=== PATIENT | female | born 2005 | race Two or more races ===

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

== ENCOUNTER 2024-04-01 15:33 | Outpatient (REF) | payer MEDICAID, SELFPAY ==
--- OUTSIDE RECORDS SUMMARY | 2024-04-01 15:35 | XMS_ITS | Encounter Summary ---
Author Organization [employer] Address [address] [facility] 7 [place] [address] Care Team Providers Care Costing Analyst Name Role Phone Desiree Sanchez Primary Care Provider [phone] Reason for Visit * Reason Onset Date Comments No Show 03/30/2024 Encounter Details Date Type Department Care Team ([facility] st Contact Info) Description 03/30/2024 Telephone [facility] [address] [place] [address] Desiree Sanchez FNP [address] [place] [address] No Show Social History Tobacco Use Types Packs/Day Years Used Date Smoking Tobacco: Former Cigarettes Smokeless Tobacco: Never Alcohol Use Standard Drinks/Week Comments Never 0 (1 standard drink = 0.6 oz pur e alcohol) Depression Answer Date Recorded Patient Health Questionnaire-9 Score 4 01/01/2024 Patient Health Questionnaire-9 Score 4 01/01/2024 Last PHQ-9: Questionnaire Data Not on file 1 03/02/2023 Housing Stability Answer Date Recorded What is your housing situation today? I have housing today, but I am worried about losing housing in the future 01/01/[address] you li ve. Do you have problems with any of the following? None of the above 01/01/2024 Food Insecurity Answer Date Recorded Within the past 12 months, y ou worried that your food would run out before you got money to buy more: Never True 12/18/2023 Within the past 12 months,th e food you bought just didn't last and you didn't have enough money to get more: Never True 09/2023 Transportation Answer Date Recorded In the past 12 months, has l ack of transportation kept you from medical appts, meetings, work or from getting things needed for daily living? No 12/18/2023 Utilities Answer Date Recorded In the past 12 months, has t he electric, gas, oil or water company threatened to shut off services in your home? No 12/18/2023 Depression Answer Date Recorded Patient Health Questionnaire-2 Score 2 01/01/2024 Internet Access Answer Date Recorded Internet Access Q1 Yes 12/18/2023 Internet Access Q2 Not on file 12/18/2023 Comments Unknown Sex and Gender Information Value Date Recorded Sex Assigned at Female 12/09/2021 10:20 AM EDT Legal Sex Female 10:20 AM EDT Gender Identity Female 12/09/2021 10:20 AM EDT Sexual Orientation Lesbian 07/11/2022 6: 40 AM EDT documented as of this encounter Miscellaneous Notes * Telephone Encounter - Maegan Garrison - 03/30/2024 3:38 PM EST Patient no show to FOLLOW UP appointment on 03/30/24. documented in this encounter Plan of Treatment Not on file documented as of this encounter Visit Diagnoses Not on filedocumented in this encounter Additional Health Concerns Assessment Noted Time PHQ-9 Depression Total Score: 4 01/01/20 1:43 PM EST documented as of this encounter Care Teams Costing Analyst Relationship Specialty Start Date End Date Desiree Sanchez FNP [address] [place] [address] PCP - General Family Medicine 11/13/23 documented as of this encounter
--- OUTSIDE RECORDS SUMMARY | 2024-04-01 15:35 | XMS_ITS | Encounter Summary ---
Author Organization [employer] Address [address] [facility] 7t [place] [address] Care Team Providers Care Food And Beverage Intern Name Role Phone Desiree Sanchez CORPORATE HUMAN RESOURCES MANAGER Primary Care Provider [phone] Reason for Visit * Reason Comments Cough Nasal Congestion Sore Throat Encounter Details Date Type Department Care Team ([facility] st Contact Info) Description 03/10/2024 3:40 PM EST Office Visit [facility] [address] [place] [address] Meredith Dubois NP [address] [place] [address] Influenza A (Primary Dx); Flu-like symptoms Social History Tobacco Use Types Packs/Day Years [...] AM EDT documented as of this encounter Last Filed Vital Signs Vital Sign Reading Time Taken Comments Blood Pressure 120/80 03/10/2024 3:31 PM EST Pulse 79 03/10/2024 3:31 PM EST Temperature 36.7 ??C (98.1 ??F) 03/10/2024 3:31 PM ES T Respiratory Rate 16 03/10/2024 3:31 PM EST Oxygen Saturation 99% 03/10/2024 3:31 PM EST Inhaled Oxygen Concentration - - Weight 49.9 kg (110 lb) 03/10/2024 3:31 PM EST Height - - Body Mass Index 18.3 01/01/2024 1:02 PM EST documented in this encounter Progress Notes * Meredith Dubois NP - 03/10/2024 3:40 PM EST SUBJECTIVE: Nida Brown is a 18 y.o. female who presents to the [facility] for a sick visit. Denies recent illness, injury, or hospitalization. HPI Nida reports cough and sore throat that started last night. States she took theraflu that helped a bit but she woke up this am drenched in sweat and shaking. She also notes headache, weakness, and chest pain with coughing. Says her tonsils are swollen and has some red streaks on them. Report her only sick contact being her mother who works at a daycare. Review of Systems Constitutional: Negative. Negative for chills and fever. HENT: Positive for sore throat. Negative for congestion and ear pain. Respiratory: Positive for cough. Negative for chest tightness and shortness of breath. Cardiovascular: Negative for chest pain. Gastrointestinal: Negative for abdominal pain, constipation, diarrhea and nausea. Genitourinary: Negative for dysuria. Musculoskeletal: Negative for arthralgias, back pain, myalgias and neck pain. Skin: Negative. Negative for rash and wound. Neurological: Negative for weakness, light-headedness and headaches. Psychiatric/Behavioral: Negative for behavioral problems, confusion, decreased concentration and suicidal ideas. OBJECTIVE: Visit Vitals BP 120/80 (BP Location: Left arm, Patient Position: Sitting, BP Cuff Size: Adult) Pulse 79 Temp 98.1 ??F (36.7 ??C) (Temporal) Resp 16 Wt 110 lb (49.9 kg) SpO2 99% BMI 18.30 kg/m?? Smoking Status Former BSA 1.51 m?? Patient Active Problem List Diagnosis Congenital cataract Conjunctival melanosis Hypermetropia Vitreous floaters Head injury Encounter for adult wellness visit Headache disorder Physical Exam Vitals reviewed. Constitutional: General: She is not in acute distress. Appearance: Normal appearance. She is not ill-appearing. HENT: Head: Normocephalic and atraumatic. Right Ear: External ear normal. Left Ear: External ear normal. Nose: Nose normal. Mouth/Throat: Pharynx: Uvula midline. No oropharyngeal exudate, posterior oropharyngeal erythema or uvula swelling. Tonsils: No tonsillar exudate or tonsillar abscesses. 3+ on the right. 3+ on the left. Eyes: General: No scleral icterus. Extraocular Movements: Extraocular movements intact. Cardiovascular: Rate and Rhythm: Normal rate and regular rhythm. Pulses: Normal pulses. Heart sounds: Normal heart sounds. Pulmonary: Effort: Pulmonary effort is normal. No respiratory distress. Musculoskeletal: General: Normal range of motion. Cervical back: Normal range of motion and neck supple. No tenderness. Lymphadenopathy: Cervical: No cervical adenopathy. Neurological: General: No focal deficit present. Mental Status: She is alert and oriented to person, place, and time. Gait: Gait normal. Psychiatric: Mood and Affect: Mood normal. Behavior: Behavior normal. Assessment/Plan Diagnoses and all orders for this visit: Influenza A Comments: -positive influenza A -Rapid COVID-19, Influenza B and Strep all negative today -ibuprofen for headaches which she says she has at home -advised increase fluid intake and rest -Sore throat: salt water gargles, drink tea with honey & lemon, suck lozenge -come to walk-in center if symptoms worsen or don't improve -work note provided Orders: - oseltamivir (Tamiflu) 75 MG capsule; Take 1 capsule (75 mg) by mouth 2 times daily for 5 days. Flu-like symptoms - Influenza A (ID NOW Rapid Molecular) - Influenza B (ID NOW Rapid Molecular) - POCT rapid strep A manually resulted - POCT Rapid COVID Ag documented in this encounter Plan of Treatment Not on file documented as of this encounter Procedures Procedure Name Priority Date/Time Associated Diagnosis Comments POCT INFLUENZA B (ID NOW RAPID MOLECULAR) Routine 03/10/2024 3:42 PM EST Flu-like symptoms POCT INFLUENZA A (ID NOW RAPID MOLECULAR) Routine 03/10/2024 3:42 PM EST Flu-like symptoms POCT RAPID STREP A Routine 03/10/2024 3: 39 PM EST Flu-like symptoms POCT RAPID COVID ANTIGEN Routine 03/10/2024 3:37 PM EST Flu-like symptoms documented in this encounter Results * Influenza B (ID NOW Rapid Molecular) (03/10/2024 3:42 PM EST) Influenza B Negative Negative, Indeterminate [facility] Swab 03/10/2024 3:42 PM EST Meredith Dubois NP POINT OF CARE TEST ENTER/EDIT O RDERABLES Final Result [facility] [address] [place] [phone] * (ABNORMAL) Influenza A (ID NOW Rapid Molecular) (03/10/2024 3:42 PM EST) Pathologist [facility] Influenza A Positive( A) Negative, Indeterminate [facility] Swab 03/10/2024 3:42 PM EST [facility] [facility] POINT OF CARE TEST ENTER/EDIT O RDERABLES Final Result [facility] [address] [place] [phone] [phone] * POCT rapid strep A manually resulted (03/10/2024 3:39 PM EST) [facility] Rapid Strep A Screen Negative Negative, None Detected Swab 03/10/2024 3:39 PM EST [facility] POINT OF CARE TEST ENTER/EDIT O RDERABLES Final Result * POCT Rapid COVID Ag (03/10/2024 3:37 PM EST) [facility] Rapid COVID Ag Negative Swab 03/10/2024 3:37 PM EST Result [facility] [employer] POINT OF CARE TEST ENTER/EDIT O RDERABLES Final Result documented in this encounter Visit Diagnoses Diagnosis Influenza A- Primary Influenza with other respiratory manifestations Flu-like symptoms documented in this encounter Additional Health Concerns Assessment Noted Time PHQ-9 Depression Total Score: 4 01/01/20 24 1:43 PM EST documented as of this encounter Care Teams Food And Beverage Intern Relationship Specialty Start Date End Date Desiree Sanchez FNP [address] [place] [address] PCP - General Family Medicine 11/13/23 documented as of this encounter
--- OUTSIDE RECORDS SUMMARY | 2024-04-01 15:35 | XMS_ITS | Encounter Summary ---
Author Organization [employer] Address [address] [facility] 7t [place] [address] Care Team Providers Care Automatic Buffing Wheel Former Name Role Phone Desiree Sanchez FLAG MAKER Primary Care Provider [phone] Encounter Details Date Type Department Care Team (Latest Contact Info) Description 04/01/2024 Travel Social History Tobacco Use Types Packs/Day Years [...] AM EDT documented as of this encounter Plan of Treatment Not on file documented as of this encounter Visit Diagnoses Not on filedocumented in this encounter Additional Health Concerns Assessment Noted Time PHQ-9 Depression Total Score: 4 01/01/20 1:43 PM EST documented as of this encounter Care Teams Automatic Buffing Wheel Former Relationship Specialty Start Date End Date Desiree Sanchez FNP [address] [place] [address] PCP - General Family Medicine 11/13/23 documented as of this encounter
--- OUTSIDE RECORDS SUMMARY | 2024-04-01 15:35 | XMS_ITS | Encounter Summary ---
Author Organization [employer] Address [address] [facility] 7 [place] [address] Care Team Providers Care Gang Punch Operator Name Role Phone Desiree Sanchez Primary Care Provider [phone] Reason for Visit * Reason Onset Date Comments Nurse Triage 03/31/2024 Encounter Details Date Type Department Care Team ([facility] st Contact Info) Description 03/31/2024 Telephone [facility] MEDICINE [address] [place] [address] Desiree Sanchez FNP [address] [place] [address] Nurse Triage Social History Tobacco Use Types Packs/Day Years [...] encounter Miscellaneous Notes * Telephone Encounter - Ana Lilia Randle LPN - 03/31/2024 4:25 PM EST Triage call to patient who reports that she has already been booked with PCP for tomorrow at 2pm. Patient reports that she feels a hard lump along the panty line on pubic area on left side. Patient reports she commonly shaves and just noted this when going to shower today and became frightened. No vaginal discharge no drainage and cannot see lump as it is under the skin and tender to touch. Patien t has no fever. Disposition reviewed. Reviewed with patient home care recommendations. Protocol Used: Skin Lump or Localized Swelling (Adult) Protocol-Based Disposition: See in Office or Video Visit within 3 Days Positive Triage Question: * Patient wants to be seen * All higher-acuity triage questions were negative Care Advice Discussed: * Reasons To Call Back - Fever occurs - You become worse * Telephone Encounter - Daryl Corona - 03/31/2024 3:59 PM EST Symptoms: Object in Vagina, Skin Lump Outcome: Schedule an urgent appointment (within 1 hour) or talk to a nurse or provider soon Reason: Caller denied all higher acuity questions The caller accepted this outcome. documented in this encounter Plan of Treatment Not on file documented as of this encounter Visit Diagnoses Not on filedocumented in this encounter Additional Health Concerns Assessment Noted Time PHQ-9 Depression Total Score: 4 01/01/20 1:43 PM EST documented as of this encounter Care Teams Gang Punch Operator Relationship Specialty Start Date End Date Desiree Sanchez FNP [address] [place] [address] PCP - General Family Medicine 11/13/23 documented as of this encounter
--- OUTSIDE RECORDS SUMMARY | 2024-04-01 15:35 | XMS_ITS | Encounter Summary ---
Author Organization [employer] Address [address] [facility] 7t [place] [address] Care Team Providers Care Activities Concierge Name Role Phone Es Akhtar DO Primary Care Provider [phone] Desiree Sanchez Primary Care Provider [phone] Reason for Visit * Reason Onset Date Comments triage 04/30/2022 Encounter Details Date Type Department Care Team (Late st Contact Info) Description 04/30/2022 Telephone [facility] MEDICINE [address] [place] [address] Es Akhtar DO [address] [place], [place] [phone] triage Social History Tobacco Use Types Packs/Day Years Used Date Smoking Tobacco: Never Smokeless Tobacco: Never Comments Unknown Sex and Gender Information Value Date Recorded Sex Assigned at Female 12/09/2021 10:20 AM EDT Legal Sex Female 10:20 AM EDT Gender Identity Female 12/09/2021 10:20 AM EDT Sexual Orientation Lesbian 07/11/2022 6: 40 AM EDT COVID-19 Exposure Response Date Recorded In the last 10 days, have yo u been in contact with someone who was confirmed or suspected to have Coronavirus/COVID-19? No / Unsure 04/30/2022 4:47 PM EDT documented as of this encounter Miscellaneous Notes * Telephone Encounter - Peggy Anaya RN - 04/30/2022 3:41 PM EDT Triage call Pt reports fell off skateboard 3/20. Pt reports hit curbing on the street but was able to get up and had some pain . Pt has been seen by school nurse because left shoulder pain isn't getting better and upper left arm is also painful. No apparent bruising or dislocation noted. Pt is ableto bend at elbow but, can't raise arm to above head. 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 Pt isn't taking anything for pajn and is advised to apply ice to shoulder. Pt mother requests for Pt to be seen in [facility] today. Home care reviewed. Protocol Used: Arm Injury (Pediatric) Protocol-Based Disposition: See in Office or Video Visit within 3 Days Video visit not offered Positive Triage Questions: * Pain not improved after 3 days * Triager thinks child needs to be seen for non-urgent problem * Caller wants child seen for non-urgent problem * All higher-acuity triage questions were negative Care Advice Discussed: * Reassurance - Minor Arm Injuries * Pain Medicine * Cold Pack for Pain * Use Heat over 48 Hours * Rest the Arm for 48 Hours: * Stretching for Pulled Muscles * Expected Course * Small Cut or Scrape Treatment * Tetanus Shot for Cuts and Scrapes * Reasons To Call Back - Pain becomes severe - Pain is not improving after 3 days - Pain lasts over 2 weeks - Your child becomes worse * Telephone Encounter - Alysha Briones - 04/30/2022 2:22 PM EDT Symptom: Shoulder Pain - Not From Injury Outcome: Schedule an urgent appointment (within 1 hour) or talk to a nurse or provider soon Reason: Can't use the shoulder normally The caller accepted this outcome Pt states fell on thursday off her skate board . Pt best contact # [phone] documented in this encounter Plan of Treatment Not on file documented as of this encounter Visit Diagnoses Not on filedocumented in this encounter Care Teams Activities Concierge Relationship Specialty Start Date End Date Es Akhtar DO [address] [place] [address] PCP - General Pediatrics 02/09/18 11/12/23 Desriee Sanchez FNP [address] [place] [address] PCP - General Family Medicine 11/13/23 documented as of this encounter
--- OUTSIDE RECORDS SUMMARY | 2024-04-01 15:35 | XMS_ITS | Encounter Summary ---
Author Organization [employer] Address [address] [facility] [address] 7[address] [place] [address] Care Team Providers Care Children'S Aide Name Role Phone Desiree Sanchez CASE THERAPIST Primary Care Provider [phone] Reason for Visit * Reason Onset Date Comments Chart Prep 03/24/2024 Encounter Details Date Type Department Care Team ([facility] st Contact Info) Description 03/24/2024 Telephone [facility] MEDICINE [address] [place] [address] Tera Hernandezra PA Chart Prep Social History Tobacco Use Types Packs/Day Years [...] encounter Miscellaneous Notes * Telephone Encounter - Dina Hernandez MA - 03/24/2024 11:04 AM EST Chart Prep Labs: not done Images: not applicable Vaccines due: Covid, Flu Referrals: none Screenings: Hep C Overdue care gaps: Fluoride documented in this encounter Plan of Treatment Not on file documented as of this encounter Visit Diagnoses Not on filedocumented in this encounter Additional Health Concerns Assessment Noted Time PHQ-9 Depression Total Score: 4 01/01/20 24 1:43 PM EST documented as of this encounter Care Teams Children'S Aide Relationship Specialty Start Date End Date Desiree Sanchez FNP [address] [place] [address] PCP - General Family Medicine 11/13/23 documented as of this encounter
--- OUTSIDE RECORDS SUMMARY | 2024-04-01 15:35 | XMS_ITS | Encounter Summary ---
Author Organization [employer] Address [address] [facility] 7t [place] [address] Care Team Providers Care Manufacturing Supervisor 2Nd Shift Name Role Phone Es Akhtar DO Primary Care Provider [phone] Desiree Sanchez RETAIL KEY HOLDER Primary Care Provider [phone] Reason for Visit * Reason Onset Date Comments Med Refill 03/04/2023 Encounter Details Date Type Department Care Team (Late st Contact Info) Description 03/04/2023 Refill [facility] [address] [place] [address] Es Akhtar DO [address] [place], [place] [phone] Tinea pedis of left foot Social History Tobacco Use Types Packs/Day Years Used Date Smoking Tobacco: Never Smokeless Tobacco: Never Alcohol Use Standard Drinks/Week Comments Never 0 (1 standard drink = 0.6 oz pur e alcohol) Housing Stability Answer Date Recorded What is your housing situation today? I have paty byrd 11/28/[address] you li ve. Do you have problems with any of the following? None of the above 11/28/2022 Food Insecurity Answer Date Recorded Within the past 12 months, y ou worried that your food would run out before you got money to buy more: Never True 11/28/2022 Within the past 12 months,th e food you bought just didn't last and you didn't have enough money to get more: Never True Transportation Answer Date Recorded In the past 12 months, has l ack of transportation kept you from medical appts, meetings, work or from getting things needed for daily living? No 11/28/2022 Utilities Answer Date Recorded In the past 12 months, has t he electric, gas, oil or water company threatened to shut off services in your home? No 11/28/2022 Depression Answer Date Recorded Patient Health Questionnaire-2 Score 3 11/28/2022 Comments Unknown Sex and Gender Information Value Date Recorded Sex Assigned at Female 12/09/2021 10:20 AM EDT Legal Sex Female 10:20 AM EDT Gender Identity Female 12/09/2021 10:20 AM EDT Sexual Orientation Lesbian 07/11/2022 6: 40 AM EDT documented as of this encounter Plan of Treatment Not on file documented as of this encounter Visit Diagnoses Diagnosis Tinea pedis of left foot documented in this encounter Care Teams Manufacturing Supervisor 2Nd Shift Relationship Specialty Start Date End Date Es Akhtar DO [address] [place] [address] PCP - General Pediatrics 02/09/18 11/12/23 Desiree Sanchez FNP [address] [place] [address] PCP - General Family Medicine 11/13/23 documented as of this encounter
--- OUTSIDE RECORDS SUMMARY | 2024-04-01 15:35 | XMS_ITS | Clinical Summary ---
Author Organization [email or web address] Address [address] [facility] [address] [place] [address] Care Team Providers Care Broadcast Operations Manager Name Role Phone Desiree Sanchez CHICK GRADER Primary Care Provider [phone] Allergies No known active allergies Medications * This document contains information received from the source organization and may not represent a complete record from that organization. naproxen (Naprosyn) 250 MG tablet Take 1-2 tablets as needed for headache BID 30 tablet 1 5 Active oseltamivir (Tamiflu) 75 MG capsuleIndicati ons:Influenza A Take 1 capsule (75 mg) by mouth 2 times daily for 5 days. 10 capsule 5 03/15/19 25 Active Problems Problem Noted Date Diagnosed Date Encounter for adult wellness visit 01/02/2024 Assessment & Plan (01/02/2024 8:47 PM EST): Alert and oriented, well nourished, good historian answering questions appropriately. ROS and physical examination unremarkable. Current concern is occasional headache triggered by strong smell and light. Used ibuprofen 600 mg with good effect Plan Relevant lab work ordered Exercise counseling Dietary counseling Follow up 1 year wellness visit Headache disorder 01/02/2024 Assessment & Plan (01/02/2024 8:53 PM EST): Nida reports occasional headache which is unrelated to recent concussion. Describes pain 5-6/10 number pain scale. Reports headache is trigger by strong smell and very bright light. She feels the headache coming, winds down and let it pass. Differential Diagnoses: The differential diagnosis associated with the presentation includes migraine, Tension headache Plan Keep headache log Take your ibuprofen once you feel the headache coming Avoid all known triggers Follow up in 3 months and bring your log book with you to the visit Head injury 12/18/2023 Assessment & Plan (12/18/2023 10:38 AM EST): Neuro exam wnl today, no red flag GILMORE sx Plan to continue with ibuprofen 600 mg q4hrs prn for headache and tylenol 500 mg prn q 4 hours Educated patient on importance of brain rest which is defined as limiting any cognitive activities that may be metabolically demanding and/or aggravate concussion symptoms. These cognitive activities can range from focused work, like doing math problems, to attending large social gatherings with lots of people, visual stimuli, and background noise. Also encouraged adequate hydration, 2-3 liters daily Pt has f/u with PCP 12/31, recommendations include to f/u on headache severity and frequency. If headache is persistent despite brain rest and hydration, consideration for GILMORE abortive therapy with Ketoralac 60 mg IM. 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 -No evidence of deviation. No raccoon eyes or Cedeño signs -Caution not to get hit in the face while healing. Assessment & Plan (09/08/2022 2:32 PM EDT): -Will check X-Ray for reassurance. -No evidence of deviation. No raccoon eyes or Cedeño signs -Caution not to get hit in the face while healing. Encounters Date Type Department Care Team Description 04/01/2024 2:00 PM EST Office Visit [facility] [address] [place] [address] Desiree Sanchez FNP 04/01/2024 Travel 03/31/[address] [facility] [address] [place] [address] Desiree Sanchez FNP Nurse Triage 03/30/[address] [facility] [address] [place] [phone] Desiree Sanchez FNP No Show 03/24/[address] [facility] [address] [place] [address] [phone] Dina Hernandez MA Chart Prep 03/10/2024 3:40 PM EST Office Visit [facility] [address] [place] [address] [phone] Meredith Dubois NP Influenza A (Primary Dx); Flu-like symptoms 01/01/2024 1:00 PM EST Office Visit [facility] [address] [place] [phone] Desiree Sanchez FNP Encounter for adult wellness visit (Primary Dx); Headache disorder 01/01/2024 Travel from Last 3 Months Immunizations Name Administration Dates Next Due DTaP 01/25/2009, 6,08/21/2005,04/17,2004 HPV 9-Valent 09/04/2017,04/30/2016 Hep A, ped/adol, 2 dose 04/06/2006,08/21/2005 Hep B, Adolescent or Pediatric 04/17/2005,2004,2004 Hib (HbOC) 11/11/2005,04/17/2005,2004 IPV 01/25/2009, 6,04/17/2005,10/29 Influenza live intranasal qu adrivalent LIAV4 12/25/2021,11/21/2020 Influenza, IIV3, injectable 01/24/2008 Influenza, Split (incl. abdon fied surface antigen) 12/03/2012,03/10/2012 MMR 01/25/2009,08/21/2005 Meningococcal MCV4P ACYW-135 11/21/2020,05/01/19 Pfizer Covid-19 Vaccine 12+ 07/18/2020 Pneumococcal Conjugate PCV 7 11/11/2005, 09/11/2005,04/17/2005,10/29 Tdap 04/30/2016 Varicella 01/25/2009,08/21/2005 Family History Medical History Relation Name Comments Asthma Father Asthma Sister Relation Name Status Comments Father Sister Social History Tobacco Use Types Packs/Day Years Used Date Smoking Tobacco: Former Cigarettes Smokeless Tobacco: Never Tobacco Cessation:Counseling Given: Not Answered Alcohol Use Standard Drinks/Week Comments Never 0 [...] Orientation Lesbian 07/11/2022 6: 40 AM EDT Last Filed Vital Signs Vital Sign Reading Time Taken Comments Blood Pressure 118/72 04/01/2024 2:12 PM EST Pulse 93 04/01/2024 2:12 PM EST Temperature 36.4 ??C (97.5 ??F) 04/01/2024 2:12 PM ES T Respiratory Rate 22 04/01/2024 2:12 PM EST Oxygen Saturation 98% 04/01/2024 2:12 PM EST Inhaled Oxygen Concentration - - Weight 48 kg (105 lb 12.8 oz) 04/01/2024 2:12 PM EST Height 165.1 cm (5' 5 ) 04/01/2024 2:12 PM EST Body Mass Index 17.61 04/01/2024 2:12 PM EST Plan of Treatment Health Maintenance Due Date Last Done Comments HIV Screening 2004 Fluoride Varnish 10/29/2014 04/28/2014, , 03/06/2011 Family Planning (PISQ) 08/12/2019 Hepatitis C Screening 2022 COVID-19 Vaccine ( season) 2023 07/18/2020, 06/27/2020 Influenza Vaccine (#1) 2023 , 11/21/2020, 12/03/2012, Additional history exists Chlamydia and Gonorrhea Screening 11/29/2023 11/28/2022 Alcohol/Substance Use Screening 12/31/2024 01/01/2024 Depression Screening 12/31/2024 01/01/2024, 01/01/20 24 SDOH Screening 12/31/2024 01/01/2024 Tobacco Screening 04/01/2025 04/01/2024 DTaP/Tdap/Td Vaccines (6 - Td or Tdap) 04/30/2026 04/30/2016, 01/25/2009, 11/11/2005, Additional history exists Zoster Vaccines (1 of 2) 2054 RSV Patients and Patients Aged 60 years or older (1 - 1-dose 75+ series) 08/12/2079 Hepatitis B Vaccines Completed 04/17/2005, 2004, 2004 HIB Vaccines Completed 11/11/2005, 10/2005, 2004 Pneumococcal Vaccine: Pediatrics (0 to 5 Years) and At-Risk Patients (6 to 49) Years) Aged Out 11/11/2005, 09/11/2005, 04/17/2005, Additional history exists No longer eligible based on patient's age to complete this topic Hepatitis A Vaccines Completed 04/06/2006, 08/22/19 06 IPV Vaccines Completed 01/25/2009, 0804/2005, 04/17/2005, Additional history exists MMR Vaccines Completed 01/25/2009, 08/21/2005 Varicella Vaccines Completed 01/25/2009, 08/21/2005 HPV Vaccines Completed 09/04/2017, 04/30/2016 Meningococcal Vaccine Completed 11/21/2020, 017 RSV under 20 months Aged Out No longe r eligible based on patient's age to complete this topic Rotavirus Vaccines Aged Out No longer eligible based on patient's age to complete this topic Procedures Procedure Name Priority Date/Time Associated Diagnosis Comments POCT INFLUENZA B (ID NOW RAPID MOLECULAR) Routine 03/10/2024 3:42 PM EST Flu-like symptoms POCT INFLUENZA A (ID NOW RAPID MOLECULAR) Routine 03/10/2024 3:42 PM EST Flu-like symptoms POCT RAPID STREP A Routine 03/10/2024 3: 39 PM EST Flu-like symptoms POCT RAPID COVID ANTIGEN Routine 03/10/2024 3:37 PM EST Flu-like symptoms CHLAMYDIA/N. GONORRHOEAE RNA, TMA, UROGENITAL Routine 11/28/2022 3:39 PM EDT General counseling and advice on contraceptive management TOPICAL APPLICATION OF FLUORIDE VARNISH Routine 04/28/2014 12:00 AM EDT from Last 3 Months or Most Recently Relevant to Health Maintenance Results * Influenza B (ID NOW Rapid Molecular) (03/10/2024 3:42 PM EST) Influenza B Negative Negative, Indeterminate [facility] Swab 03/10/2024 3:42 PM EST us Meredith Dubois MEAL ATTENDANT POINT OF CARE TEST ENTER/EDIT O RDERABLES Final Result [facility] [address] [place] [phone] [phone] * (ABNORMAL) Influenza A (ID NOW Rapid Molecular) (03/10/2024 3:42 PM EST) [facility] Influenza A Positive( A) Negative, Indeterminate [facility] Swab 03/10/2024 3:42 PM EST [facility] MEAL ATTENDANT POINT OF CARE TEST ENTER/EDIT O RDERABLES Final Result [facility] [address] [place] [address] [phone] * POCT rapid strep A manually resulted (03/10/2024 3:39 PM EST) [facility] Rapid Strep A Screen Negative Negative, None Detected Swab 03/10/2024 3:39 PM EST [facility] MEAL ATTENDANT POINT OF CARE TEST ENTER/EDIT O RDERABLES Final Result * POCT Rapid COVID Ag (03/10/2024 3:37 PM EST) [facility] Rapid COVID Ag Negative Swab 03/10/2024 3:[address] [facility] MEAL ATTENDANT POINT OF CARE TEST ENTER/EDIT O RDERABLES Final Result * Chlamydia/N. Gonorrhoeae RNA, TMA, Urogenitial (11/28/2022 3:39 PM EDT) [facility] CT PCR NOT DETECTED Not Detect. [facility] Comment:A not detected test result does not exclude the possibilityof infection because test results can be affected byimproper specimen collection, concurrent antibiotic therapy,or the number of organisms in the specimen which may bebelow the sensitivity of the test. As with many diagnostictests, results from the Xpert CT/NG assay should beinterpreted in conjunction with other laboratory andclinical data available to the clinician.Xpert CT/NG performance has not been evaluated in patientsless than 14 years of age. The assay should not be used forthe evaluationof suspected sexual abuse or for other medico-legalindications. Additional testing is recommended in anycircumstance when false positive or false negative resultscould lead to adverse medical, social or psychologicalconsequences. NG PCR NOT DETECTED Not Detect. [facility] Comment:A not detected test result does not exclude the possibilityof infection because test results can be affected byimproper specimen collection, concurrent antibiotic therapy,or the number of organisms in the specimen which may bebelow the sensitivity of the test. As with many diagnostictests, results from the Xpert CT/NG assay should beinterpreted in conjunction with other laboratory andclinical data available to the clinician.Xpert CT/NG performance has not been evaluated in patientsless than 14 years of age. The assay should not be used forthe evaluationof suspected sexual abuse or for other medico-legalindications. Additional testing is recommended in anycircumstance when false positive or false negative resultscould lead to adverse medical, social or psychologicalconsequences. Urine (Urine, Random) 11/28/2022 3:39 PM EDT 11/28/2022 5:32 PM EDT Narrative [facility] - 11/29/2022 3:51 AM EDT Urine Es Akhtar DO LAB MICROBIOLOGY - GENERAL OR DERABLES Final Result Performing Organization Address City/State/[facility] Co de Phone Number [facility] [address] [place] [phone] from Last 3 Months or Most Recently Relevant to Health Maintenance Insurance [facility] C3 [facility] C3 Care Teams Broadcast Operations Manager Relationship Specialty Start Date End Date Desiree Sanchez FNP [address] [place] [phone] PCP - General Family Medicine 11/13/23
--- OUTSIDE RECORDS SUMMARY | 2024-04-01 15:35 | XMS_ITS | Encounter Summary ---
Author Organization [employer] Address [address] [facility] [address] [place] [address] Care Team Providers Care Petroleum Refinery Operator Name Role Phone Es Akhtar DO Primary Care Provider [phone] Desiree Sanchez Primary Care Provider [phone] Encounter Details Date Type Department Care Team ([facility] st Contact Info) Description 07/21/2022 Orders Only [facility] [address] [place] [address] Es Akhtar DO [address] [place] [address] Panic attacks (Primary Dx) Social History Tobacco Use Types Packs/Day Years [...] suspected to have Coronavirus/COVID-19? No / Unsure 07/18/2022 4:45 AM EDT documented as of this encounter Plan of Treatment Not on file documented as of this encounter Visit Diagnoses Diagnosis Panic attacks- Primary Panic disorder without agoraphobia documented in this encounter Care Teams Petroleum Refinery Operator Relationship Specialty Start Date End Date Es Akhtar DO [address] [place] [address] PCP - General Pediatrics 02/09/18 11/12/23 Desiree Sanchez FNP [address] [place] [address] PCP - General Family Medicine 11/13/23 documented as of this encounter
--- OUTSIDE RECORDS SUMMARY | 2024-04-01 15:35 | XMS_ITS | Encounter Summary ---
Author Organization [employer] Address [address] [facility] [address] [place] [address] Care Team Providers Care Charge Nurse Name Role Phone Desiree Sanchez Primary Care Provider [phone] Reason for Visit * Reason Comments Follow-up Encounter Details Date Type Department Care Team ([facility] st Contact Info) Description 04/01/2024 2:00 PM EST Office Visit [facility] [address] [place] [address] Desiree Sanchez FNP [address] [place] [address] Social History Tobacco Use Types Packs/Day Years [...] Mass Index 17.61 04/01/2024 2:12 PM EST documented in this encounter Plan of Treatment Not on file documented as of this encounter Visit Diagnoses Not on filedocumented in this encounter Additional Health Concerns Assessment Noted Time PHQ-9 Depression Total Score: 4 01/01/20 1:43 PM EST documented as of this encounter Care Teams Charge Nurse Relationship Specialty Start Date End Date Desiree Sanchez FNP [address] [place] [address] PCP - General Family Medicine 11/13/23 documented as of this encounter
[2024-04-01 16:41] LABS: MANUAL DIFF FLAG NO
[2024-04-01 16:52] LABS: Basophils Absolute Auto 0.1 X10*3/uL (0.0-0.2); Basophils Percent Auto 0.7 % (0-2); Eosinophils Absolute Auto 0.2 X10*3/uL (0.0-0.4); Eosinophils Percent Auto 2.1 % (0-4); Hemoglobin 14.1 g/dl (12.0-16.0); Imm Gran Abs Auto 0.01 X10*3/uL (0.00-0.03); Imm Gran Pct Auto 0.1 % (0.0-0.4); Lymphocytes Absolute Auto 3.1 X10*3/uL (1.2-4.9); Lymphocytes Percent Auto 38.4 % (20-40); Mean Corpuscular HGB Conc 33.6 g/dl (31.0-35.0); Mean Corpuscular Hemoglobin 28.3 pg (27.0-33.0); Mean Corpuscular Volume 84.2 fL (80.0-98.0); Mean Platelet Volume 8.8 fL (9.4-12.3); Monocytes Absolute Auto 0.7 X10*3/uL (0.1-1.2); Monocytes Percent Auto 8.5 % (2-11); Neutrophils Percent Auto 50.2 % (45-73); Platelet Count 422 X10*3/uL (160-400); Red Blood Count 4.99 X10*6/uL (4.20-5.50); Red Cell Distribution Width 11.4 % (11.0-16.0)
[2024-04-02 08:15] LABS: HIV AB/AG Nonreactive (Nonreactive); HIV Num 1 0.09 S/CO (0.00-0.99)
== END 2024-04-01 15:34 | disposition home or self-care (01) ==
LOC: HO.HHCL 15:33
PROVIDERS: Visit Provider Nurse Practitioner Family
DX: Z00.00 Encounter for general adult medical examination without abnormal findings (principal)
CPT/HCPCS: 36415; 85025; 87389

== ENCOUNTER → 2024-10-04 18:05 | Outpatient (BNV) | payer MEDICAID, SELFPAY | PROVIDERS: Visit Provider Radiology Diagnostic Radiology | DX: R51.9 Headache, unspecified (principal); J34.89 Other specified disorders of nose and nasal sinuses | CPT/HCPCS: 70551 ==

== ENCOUNTER 2024-10-04 18:24 | Outpatient (REF) | payer MEDICAID, SELFPAY ==
--- NOTE | ~2024-10-04 | MR_ITS ---
CLINICAL HISTORY: worsening headache pattern MR Brain without gadolinium Comparison: None provided Findings: The size and shape of the ventricular system is within normal limits. Signal intensity of the brain parenchyma is within normal limits. Joseph-white differentiation is well preserved. No restricted diffusion. No midline shift mass effect. No intracranial hemorrhage. Visualized flow voids are patent. There fluid seen within portions of the left frontal sinus. Paranasal sinuses are otherwise unremarkable. There is lymphoid hyperplasia of the adenoids. IMPRESSION: 1. No acute intracranial findings. Specifically, no hemorrhage, mass, or restricted diffusion. 2. Left frontal sinus disease. This could be a potential etiology for the patient's headaches. Clinical correlation advised. 3. Prominent adenoidal soft tissue, potentially reactive hyperplasia to a infectious or inflammatory process. However, baseline enlargement of the adenoids can be a normal variant. Correlation with physical examination suggested. This document has been electronically signed by: Javier Avalos MD on 10/05/2024 10:03:08
--- OUTSIDE RECORDS SUMMARY | 2024-10-04 18:28 | XMS_ITS | Encounter Summary ---
Author Organization [employer] Address [address] [facility] [address] [place] [address] Care Team Providers Care Aviation Engineer Name Role Phone Desiree Sanchez Primary Care Provider [phone] Reason for Visit * Reason Comments Med Refill Encounter Details Date Type Department Care Team ([facility] Contact Info) Description 09/14/2024 Refill [facility] [address] [place] [address] Desiree Sanchez FNP [address] [place] [address] Social History Tobacco Use Types Packs/Day Years [...] documented as of this encounter Care Teams Aviation Engineer Relationship Specialty Start Date End Date Desiree Sanchez FNP [address] [place] [phone] PCP - General Family Medicine 11/13/23 documented as of this encounter
--- OUTSIDE RECORDS SUMMARY | 2024-10-04 18:28 | XMS_ITS | Encounter Summary ---
Author Organization [employer] Address [address] [place] [address] [address] [place] [address] Care Team Providers Care Measurement And Verification Engineer Name Role Phone Es Akhtar DO Primary Care Provider [phone] Desiree Sanchez Primary Care Provider [phone] Reason for Visit * Reason Onset Date Comments triage 04/30/2022 Encounter Details Date Type Department Care Team (Late st Contact Info) Description 04/30/2022 Telephone [facility] [address] [place] [address] Es Akhtar DO [address] [place], [place] [phone] triage Social History Tobacco Use Types Packs/Day [...] Triage call Pt reports fell off skateboard 04/28. Pt reports hit curbing on the street [...] requests for Pt to be seen in [facility] today. Home care reviewed. Protocol Used: Arm [...] skate board . Pt best contact # [phone] documented in this encounter Plan of Treatment Not on file documented as of this encounter Visit Diagnoses Not on filedocumented in this encounter Care Teams Measurement And Verification Engineer Relationship Specialty Start Date End Date Es Akhtar DO [address] [place] [phone] PCP - General Pediatrics 02/09/18 11/12/23 Desiree Sanchez FNP [address] [place] [phone] PCP - General Family Medicine 11/13/23 documented as of this encounter
--- OUTSIDE RECORDS SUMMARY | 2024-10-04 18:28 | XMS_ITS | Clinical Summary ---
Author Organization [employer] Address [address] [facility] [address] [place] [address] Care Team Providers Care Web Development Consultant Name Role Phone Desiree Sanchez NICKY Primary Care Provider [phone] Allergies No known active allergies Medications * This document contains information received from the source organization and may not represent a complete record from that organization. naproxen (Naprosyn) 250 MG tablet Take 1-2 tablets as needed for headache BID 30 tablet 1 09/20/19 25 Active SUMAtriptan (Imitrex) 25 MG tabletIndicatio ns:Migraine without aura and without status migrainosus, not intractable Take 1 tablet (25 mg) by mouth 1 (one) time if needed for migraine. May repeat dose once in 2 hours if no relief. Do not exceed 2 doses in 24 hours. 30 tablet 09/16/19 25 025 Active naproxen (Naprosyn) 250 MG tablet Take 1-2 tablets as needed for headache BID 30 tablet 1 04/01/19 25 025 Discontinued(Re order (will not trigger notification to Pharmacy)) Active Problems Problem Noted Date Diagnosed Date Migraine without aura and wi thout status migrainosus, not intractable 09/15/2024 Lymphadenopathy, inguinal 04/01/2024 Headache disorder 01/02/2024 Assessment & Plan (01/02/2024 [...] Problem Noted Date Diagnosed Date Resolved Date Encounter for adult wellness visit 01/02/2024 09/15/2024 Assessment & Plan (01/02/2024 8:47 PM EST): Alert and oriented, well nourished, good historian answering questions appropriately. ROS and physical examination unremarkable. Current concern is occasional headache triggered by strong smell and light. Used ibuprofen 600 mg with good effect Plan Relevant lab work ordered Exercise counseling Dietary counseling Follow up 1 year wellness visit Injury of nose 09/08/2022 11/28/2022 Overview (09/08/2022): [...] Encounters Date Type Department Care Team Description 09/19/2024 Telephone [facility] [address] [place], [place] [phone] Desiree Sanchez FNP 09/15/2024 1:45 PM EDT Office Visit [facility] [address] [place] [address] Desiree Sanchez FNP Migraine without aura and without status migrainosus, not intractable (Primary Dx); Dietary counseling; Exercise counseling 09/15/2024 Travel 09/14/2024 Refill [facility] [address] [place] [address] Desiree Sanchez FNP 09/12/2024 Refill [facility] [address] [place], [place] [phone] Desiree Sanchez FNP from Last 3 Months Immunizations Immunization Administration Dates Next Due DTaP 01/25/2009, 6,08/21/2005,04/17,2004 HPV 9-Valent 09/04/2017,04/30/2016 Hep A, ped/adol, 2 dose 04/06/2006,08/21/2005 Hep B, Adolescent or Pediatric 04/17/2005,2004,2004 Hib (HbOC) 11/11/2005,04/17/2005,2004 IPV 01/25/2009, 6,04/17/2005,10/29 Influenza live intranasal qu adrivalent LIAV4 12/25/2021,11/21/2020 Influenza, IIV3, injectable 01/24/2008 Influenza, Split (incl. abdon fied surface antigen) 12/03/2012,03/10/2012 MMR 01/25/2009,08/21/2005 Meningococcal MCV4P ACYW-135 11/21/2020,05/01/19 17 Pfizer Covid-19 Vaccine 12+ 07/18/2020 Pneumococcal Conjugate PCV 7 11/11/2005, 09/11/2005,04/17/2005,10/29 Tdap 04/30/2016 Varicella 01/25/2009,08/21/2005 Family History Medical History Relation Name Comments Asthma Father Asthma Sister Relation Name Status Comments Father Sister Social History Tobacco Use Types Packs/Day Years Used Date Smoking Tobacco: Never Passive Smoke Exposure: Never Smokeless Tobacco: Never Tobacco Cessation:Counseling Given: Not [...] Sign Reading Time Taken Comments Blood Pressure 122/68 09/15/2024 1:41 PM EDT Pulse 82 09/15/2024 1:41 PM EDT Temperature 36.8 C (98.2 F) 09/15/2024 1:41 PM EDT Respiratory Rate 12 09/15/2024 1:41 PM EDT Oxygen Saturation 98% 09/15/2024 1:41 PM EDT Inhaled Oxygen Concentration - - Weight 49.9 kg (110 lb) 09/15/2024 1:41 PM EDT Height 156.7 cm (5' 1.71 ) 09/15/2024 1:41 PM ED T Body Mass Index 20.31 09/15/2024 1:41 PM EDT Plan of Treatment Health Maintenance Due Date Last Done Comments Family Planning (PISQ) 08/12/2019 Meningococcal B Vaccine (1 of 2 - Standard) 2020 Hepatitis C Screening 2022 COVID-19 Vaccine ( season) 2023 07/18/2020, 06/27/2020 Chlamydia and Gonorrhea Screening 11/29/2023 11/28/2022 Influenza Vaccine (#1) 2024 , 11/21/2020, 12/03/2012, Additional history exists Alcohol/Substance Use Screening 12/31/2024 01/01/2024 Depression Screening 12/31/2024 01/01/2024, 01/01/20 24 SDOH Screening 12/31/2024 01/01/2024 Disability Screening 09/15/2025 09/15/2024 Tobacco Screening 09/15/2025 09/15/2024 DTaP/Tdap/Td Vaccines (6 - Td or Tdap) 04/30/2026 04/30/2016, 01/25/2009, 11/11/2005, Additional history exists Zoster Vaccines (1 of 2) 2054 RSV Patients and Patients Aged 60 years or older (1 - 1-dose 75+ series) 08/12/2079 Hepatitis B Vaccines Completed 04/17/2005, 2004, 2004 HIB Vaccines Completed 11/11/2005, 10/2005, 2004 Pneumococcal Vaccine: Pediatrics (0 to 5 Years) and At-Risk Patients (6 to 49) Years Aged Out 11/11/2005, 09/11/2005, 04/17/2005, Additional history exists No longer eligible based on patient's age to complete this topic Hepatitis A Vaccines Completed 04/06/2006, 08/22/19 06 IPV Vaccines Completed 01/25/2009, 08/0 04/2005, 04/17/2005, Additional history exists HPV Vaccines Completed 09/04/2017, 04/30/2016 Meningococcal Vaccine Completed 11/21/2020, 017 HIV Screening Completed 04/01/2024 RSV under 20 months Aged Out No longe r eligible based on patient's age to complete this topic Rotavirus Vaccines Aged Out No longer eligible based on patient's age to complete this topic Procedures Procedure Name Priority Date/Time Associated Diagnosis Comments HIV 1/2 ANTIGEN/ANTIBODY, FOURTH GENERATION W/RFL Routine 04/01/2024 3:34 PM EST Encounter for adult wellness visit CHLAMYDIA/N. GONORRHOEAE RNA, TMA, UROGENITAL Routine 11/28/2022 3:39 PM EDT General counseling and advice on contraceptive management from Last 3 Months or Most Recently Relevant to Health Maintenance Results * HIV-1/2 Antigen and Antibodies, Fourth Generation, with Reflexes (04/01/2024 3:34 PM EST) [facility] HIV AB/AG Nonreactive Nonreactive [facility] Comment:HIV-1 p24 Ag and/or HIV-1/HIV-2 Ab not detected.A test result that is nonreactive does not exclude thepossibility of exposure to or infection with HIV-1 and/orHIV-2. Nonreactive results in this assay for individualswith prior exposure to HIV-1 and/or HIV-2 may be due toantigen and antibody levels that are below the limit ofdetection of this assay.The [facility] HIV Ag/Ab Combo assay result andsupplemental assay results should be interpreted inconjunction with the patient's clinical presentation,history and other laboratory results. If the results areinconsistent with clinical evidence, additional testing issuggested to confirm the result. Blood Venous blood specimen / Unknown 04/01/2024 3:34 PM EST 04/01/2024 4:31 PM EST Desiree Sanchez [facility] BLOOD ORDERABLES Final Res ult [facility] [address] [place] [address] [phone] * Chlamydia/N. Gonorrhoeae RNA, TMA, Urogenitial (11/28/2022 3:39 PM EDT) CT PCR NOT DETECTED Not Detect. [facility] Comment:A not detected test result [...] psychologicalconsequences. NG PCR NOT DETECTED Not Detect. [facility] Comment:A not detected test result [...] PM EDT 11/28/2022 5:32 PM EDT Narrative [facility] - 11/29/2022 3:51 AM EDT Urine Es Akhtar DO LAB MICROBIOLOGY - GENERAL OR DERABLES Final Result Performing Organization Address City/State/[facility] Co de Phone Number [facility] [address] [place] [address] [phone] from Last 3 Months or Most Recently Relevant to Health Maintenance Insurance [employer] Care Teams Web Development Consultant Relationship Specialty Start Date End Date Desiree Sanchez FNP [address] [place] [id number] PCP - General Family Medicine 11/13/23
--- OUTSIDE RECORDS SUMMARY | 2024-10-04 18:28 | XMS_ITS | Encounter Summary ---
Author Organization [employer] Address [address] [facility] [address] [place] [address] Care Team Providers Care Social Media Content Specialist Name Role Phone Es Akhtar DO Primary Care Provider [phone] Desiree Sanchez [employer] ATTENDANT Primary Care Provider [phone] Reason for Visit * Reason Onset Date Comments Med Refill 03/04/2023 Encounter Details Date Type Department Care Team (Late st Contact Info) Description 03/04/2023 Refill [facility] [address] [place] [address] Es Akhtar DO [address] [place], [place] [phone] Tinea pedis of left foot Social History [...] foot documented in this encounter Care Teams Social Media Content Specialist Relationship Specialty Start Date End Date Es Akhtar DO [address] [place] [address] PCP - General Pediatrics 02/09/18 11/12/23 Desiree Sanchez FNP [address] [place] [address] PCP - General Family Medicine 11/13/23 documented as of this encounter
--- OUTSIDE RECORDS SUMMARY | 2024-10-04 18:28 | XMS_ITS | Encounter Summary ---
Author Organization [employer] Address [address] [place] [address] [address] [place] [address] Care Team Providers Care Microcomputer Support Specialist Name Role Phone Es Akhtar DO Primary Care Provider [phone] Desiree Sanchez Primary Care Provider [phone] Encounter Details Date Type Department Care Team ([facility] st Contact Info) Description 07/21/2022 Orders Only [facility] [address] [place] [phone] Es Akhtar DO [address] [place] [address] Panic attacks (Primary Dx) Social History Tobacco [...] agoraphobia documented in this encounter Care Teams Microcomputer Support Specialist Relationship Specialty Start Date End Date Es Akhtar DO [address] [place] [address] PCP - General Pediatrics 02/09/18 11/12/23 Desiree Sanchez FNP [address] [place] [address] PCP - General Family Medicine 11/13/23 documented as of this encounter
== END 2024-10-04 18:25 | disposition home or self-care (01) ==
LOC: HO.MRI 18:24
PROVIDERS: Visit Provider Nurse Practitioner Family
DX: G44.52 New daily persistent headache (NDPH) (principal); G43.009 Migraine without aura, not intractable, without status migrainosus
CPT/HCPCS: 70551